=== PATIENT | male | born 1970 | race Caucasian/White ===

== ENCOUNTER 2024-01-31 16:32 | Emergency (ER) | payer BC, SELFPAY ==
[2024-01-31 16:48] VITALS: BP 125/86
--- NOTE | 2024-01-31 16:51 | ED.PDOC.TRB ---
ED Provider Triage
-
Patient seen by provider in Triage?: Seen in Triage
Attestation: A medical screening examination has been initiated by a qualified medical provider. Based on the assessment performed at this time, it has been determined that an emergent medical condition may exist and the patient has been informed
that further medical evaluation and possible additional diagnostic testing may be needed.
HPI: 54-year-old male presents with left flank pain for the past several days, radiates anteriorly and toward the pelvis. Currently in no pain but at maximum pain is rated 7 or 8 out of 10. No obvious provoking or palliating factors. No fevers or
vomiting.
GENERAL: Alert , in no apparent distress
EYE: No visual abnormalities.
NECK: Trachea midline
ENT: No visible abnormalities.
LUNGS: No acute respiratory distress
NEUROLOGICAL: Alert and oriented
SKIN: Skin intact. No visible changes.
MUSCULOSKELETAL: Moving extremities normally
PSYCH: Normal and appropriate interaction.
Assessment: Clinical picture consistent with ureterolithiasis. Will obtain basic labs, urine, CT
This is a medical evaluation conducted in person to initiate diagnostic evaluation and provide initial therapeutics. Please see further documentation by the treating clinician.
[2024-01-31 17:10] LABS: % Basophils 0.8 % (0-2); % Eosinophils 2.6 % (0-6); % Immature Granulocytes 0.1 % (0-0.5); % Lymphocytes 46.3 % (20.5-51.1); % Monocytes 8.5 % (1.7-9.3); % Neutrophils 41.7 % (42.2-75.2); Absolute Basophils 0.1 10^3/uL (0-0.2); Absolute Eosinophils 0.2 10^3/uL (0-0.7); Absolute Lymphocytes 3.6 10^3/uL (1.2-3.4); Absolute Monocytes 0.7 10^3/uL (0.1-0.6); Absolute Neutrophils 3.2 10^3/uL (1.4-6.5); Hematocrit 43.2 % (39.0-52.0); Hemoglobin 15.2 g/dL (13.0-18.0); Mean Corp Hgb Conc. 35.2 g/dL (33.0-37.0); Mean Corpuscular Hgb 31.8 pg (27.0-31.0); Mean Corpuscular Volume 90.4 fL (80.0-94.0); Mean Platelet Volume 9.3 fL (7.4-10.4); Nucleated Red Blood Cells % 0 % (-); Platelet Count 233 10^3/uL (130-400); Red Blood Cell Count 4.78 10^6/uL (4.70-6.10); Urine Albumin Negative (Neg - Trace); Urine Bilirubin Negative (Negative); Urine Character Clear (Clear); Urine Color Yellow; Urine Glucose Negative (Negative); Urine Ketone Negative (Negative); Urine Leukocyte Negative (Negative); Urine Nitrite Negative (Negative); Urine Occult Blood Negative (Negative); Urine Urobilinogen Negative (Neg - 1+); White Blood Cell Count 7.7 10^3/uL (4.8-10.8)
[2024-01-31 17:27] LABS: ALT (SGPT) 22 U/L (0-50); AST (SGOT) 27 U/L (17-59); Albumin 4.6 g/dl (3.5-5.0); Alkaline Phosphatase 53 U/L (38-126); Blood Urea Nitrogen 18 mg/dl (9-20); Calcium 9.5 mg/dl (8.4-10.2); Carbon Dioxide 29 mmol/L (22-30); Chloride 101 mmol/L (98-107); Glucose 92 mg/dl (70-99); Potassium 4.2 mmol/L (3.5-5.1); Sodium 142 mmol/L (135-145); Total Bilirubin 0.6 mg/dl (0.2-1.3); Total Protein 6.9 g/dl (6.3-8.2); eGFR > 60.00
--- NOTE | 2024-01-31 17:35 | ED.GENMED ---
History of Present Illness
General
Chief Complaint: Flank Pain
Source: patient
Time Seen by Provider: 01/31/24 17:24
History of Present Illness
History of Present Illness:
54-year-old male presents to the emergency room complaining of left back, flank and side pain. Pain has been occurring intermittently for the past 3 days. When the pain is there is present for about 10 to 30 seconds and then goes away. Patient
cannot identify any causative or exacerbating factors. He has not taken any kgkk-nfe-vsmhoss medications. Patient has no significant past medical history. He denies any previous abdominal operations. No dysuria or frequency.
Past History
Past History
ED Past Medical History: None
Phy Exam
Physical Exam
Physical Exam:
General: Awake, Alert, Oriented X3. No acute distress.
Vitals: unremarkable
Head: Atraumatic
Eyes: Pupils equal, EOMI
Throat: Airway intact, no exudates
Neck: Trachea midline
Lungs: Clear and equal b/l
Heart: Regular rate, no murmurs
Abd: Soft, Nontender, No pulsatile mass
Back: No flank pain to percussion
Neuro: Nonfocal
Skin: Warm, dry, no rash
Extremities: pulses equal b/l, no edema
Course
Orders/Labs/Results
Orders:
Orders
01/31/24 16:49
CT Abd/pel Without Iv Or Oral Urgent
Comment:
Reason For Exam: L flank pain
01/31/24 16:58
Complete Blood Count/With Diff Urgent
Comprehensive Metabolic Panel Urgent
Urinalysis Reflex To Culture Urgent
Date Specimen was Collected: 01/31/24
Time Specimen was Collected: 16:53
Abnormal Lab Results
01/31/24
16:58
MCH 31.8 H pg
(27.0-31.0)
Absolute Lymphs (auto) 3.6 H 10^3/uL
(1.2-3.4)
Absolute Monos (auto) 0.7 H 10^3/uL
(0.1-0.6)
Neutrophils % 41.7 L %
(42.2-75.2)
01/31/24 16:58
01/31/24 16:58
Vital Signs
Initial and Last Documented VS:
Initial Vital Signs
Temp Pulse Resp BP Pulse Ox
98.5 F 69 20 125/86 100
01/31/24 16:48 01/31/24 16:48 01/31/24 16:48 01/31/24 16:48 01/31/24 16:48
Last Documented Vital Signs
Temp Pulse Resp BP Pulse Ox
98.5 F 65 18 125/87 95
01/31/24 16:48 01/31/24 18:10 01/31/24 18:10 01/31/24 18:10 01/31/24 18:10
MDM/Problems Addressed
Differential Diagnosis Includes:
Kidney stone, UTI, musculoskeletal pain
MDM/Problems Addressed:
Patient concerned about the back pain which is colicky in nature. Workup here is reassuring. White count is normal. Chemistries including LFTs and renal function are normal. Urinalysis is completely negative. CT of the abdomen pelvis was
obtained which is read as normal by radiology. Patient does not believe he is having musculoskeletal pain. However there is no evidence for an unstable process ongoing at this time. Patient could be discharged for outpatient follow-up.
*Radiology
Radiology exam reviewed: radiology read reviewed
*Pulse Oximetry
Patient hypoxic: no
*Critical Care Note
Total Time (30-74mins, 75-104mins- exclusive of procedures): Not Applicable
ED Attending Note
-
Portions of this chart may have been created with voice recognition software.� Occasional wrong word or��sound alike� substitutions may have occurred due to the inherent limitations of voice recognition software.
Discharge Plan
Departure
Patient Disposition: Home (Routine Discharge)
Date of Disposition: 01/31/24
Time of Disposition: 17:40
Patient with high blood pressure during this ER visit?: No
Condition: Good
Discharge Problem:
Back pain
Instructions: Low Back Pain ED
Prescriptions:
New
metaxalone 800 mg tablet
800 mg PO TID PRN (Reason: muscle pain) Qty: 20 0RF
No Action
hydrocodone-acetaminophen [Lortab] 7.5 MG/500 MG tablet
1 tab PO .Q6HRS Qty: 25 0RF
naproxen 500 MG tablet
500 mg PO BID Qty: 0 0RF
Rx Instructions:
Take with food.
Interventions
Interventions:
*Risk Screen - Suicide Last Done: 01/31/24 16:48
*General Assessment Last Done: 01/31/24 16:48
*Neglect/Abuse Screening Last Done: 01/31/24 16:48
ED- Fall Risk Assessment Last Done: 01/31/24 17:42
*Nursing Disposition Last Done: 01/31/24 18:10
AE-Aiftjl-Llhehfzqjx Assessment Last Done: 01/31/24 17:42
Discharge Date and Time
Discharge Date/Time: 01/31/24 18:10
Print Language: MACEDONIAN
[2024-01-31 18:10] VITALS: BP 125/87
== END 2024-01-31 18:10 | disposition home or self-care (01) ==
LOC: EMR 16:32
PROVIDERS: Physician Assistant; EMERGENCY PHYSICIAN Emergency Medicine; FAMILY PHYSICIAN Internal Medicine
DX: M54.9 Dorsalgia, unspecified (principal)
CPT/HCPCS: 99284; 74176; 80053; 81003; 85025